=== PATIENT | female | born 1985 | race Caucasian/White ===

== ENCOUNTER 2016-07-23 21:33 | Emergency (ER) | payer OTHER, MEDICAID ==
[~2016-07-23 21:33] MED LIST: CELE20TA PO; CRAN300T PO; FIBEPOW PO; FLUTISP; INVA1INJ IV; MEDR4PAK PO; POLYBTL PO; PRED10TA2 PO; PROAAER INH; SING5CHW PO; SYMB80INH INH; ZYRT10CA PO
--- NOTE | 2016-07-23 23:34 | EDDOCDS ---
Nurse's Notes [facility] Name: Sharri Berger Age: 31 yrs Sex: Female : 1985 Arrival Date: 07/23/2016 Time: 21:33 Bed Triage 1 Private MD: Lesley Vogel PA-C Diagnosis: Erythematous condition, unspecified-SUSPECT CELLULITIS VS. SUPERFICIAL PHLEBITIS;Pain in left leg Presentation: 07/23 21:39 Presenting complaint: Patient states: lump to left hamstring for past 3 days and tender jjr to the touch, also has had lump to left quadriceps for months and is waiting for MRI approval through insurance. Adult Sepsis Screening: The patient does not have new or worsening altered mentation. Patient's respiratory rate is less than 22. Systolic blood pressure is greater than 100. Patient has a qSOFA score of 0- Negative Sepsis Screen. Suicide/Homicide risk assessment- the patient denies having any suicidal and/or homicidal ideations and does not present with any other emotional, behavioral or mental health complaints. Status: Patient is not a utility service worker or dependent. Transition of care: patient was not received from another setting of care. 21:39 Acuity: WAYNE Level 4 jjr 21:39 Method Of Arrival: Walkin/Carried/Asstd jjr Triage Assessment: 21:43 General: Appears in no apparent distress, Behavior is appropriate for age. Pain: jjr Location: left hamstring and left quadriceps. HIV screening NA for this visit Offered previously. 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 none - PMHx: Asthma; - PSHx: repair of fractured finger; - Social history: Smoking status: Patient states was never smoker of tobacco. No barriers to communication noted, The patient speaks fluent Israeli. - Family history: Not pertinent. - : The pt / caregiver states he / she is not on anticoagulants. Home medication list is obtained from the patient. - Exposure Risk Screening:: None identified. Screenin:43 Infection Control. gr2 23:31 Screening information is obtained from the patient. Fall risk: No risks identified. ko2 Assistance ADL's: requires no assistance with activities of daily living. Abuse/DV Screen: The patient / caregiver reports he/she is: not in a situation that causes fear, pain or injury. Nutritional screening: No deficits noted. Advance Directives: Currently, there is no health care proxy. There is no active DNR order. There is no living will. There is no Power of On Car Supervisor. home support is adequate. Assessment: 23:25 General: Appears in no apparent distress, Behavior is appropriate for age, cooperative. ko2 Pain: Location: left leg. Respiratory: Airway is patent. Derm: Skin is pink. Musculoskeletal: Range of motion intact in all extremities. Vital Signs: 21:35 BP 107 / 60; Pulse 76; Resp 18 S; Temp 96.7(O); Pulse Ox 100% on R/A; Weight 76.57 kg gr2 (M); Height 5 ft. 8 in. (172.72 cm) (M); Pain 6/10; 23:26 BP 107 / 65; Pulse 76; Resp 18; Temp 98.4(TE); Pulse Ox 98% on R/A; Pain 4/10; kb5 21:35 Body Mass Index 25.67 (76.57 kg, 172.72 cm) gr2 Vitals: 21:35 Log In Time: July 23, 2016 at 21:35. gr2 ED Course: 21:35 Patient visited by Melonie Perez. gr2 21:35 Lesley Vogel is Private Physician. gr2 21:35 Patient moved to Waiting gr2 21:38 Patient visited by Melonie Perez. gr2 21:38 Patient moved to Pre RCE gr2 21:42 Triage Initiated jjr 21:43 Patient visited by Melonie Perez. gr2 23:09 Patient moved to Triage 1 ko2 23:10 Duane Villalba PA is PHCP. btw 23:10 Robin Boyd DO is Attending Physician. btw 23:10 Patient visited by Duane Villalba PA. btw 23:19 Lesley Vogel is Referral Physician. btw 23:27 Patient visited by Gabriel Golden PCA. kb5 23:32 The patient / caregiver is instructed regarding the plan of care and ED course. ko2 23:32 No IV's were initiated during this patient's visit. No procedures done that require ko2 assistance. Order Results: There are currently no results for this order. Outcome: 23:19 Discharge ordered by Provider. btw 23:32 Discharge Assessment: Patient awake, alert and oriented x 3. No cognitive and/or ko2 functional deficits noted. Patient verbalized understanding of disposition instructions. patient administered narcotics - no. The following High Risk Discharge criteria are identified: None. Discharged to home ambulatory, Admitted. Condition: stable. Discharge instructions given to patient, Instructed on discharge instructions, follow up and referral plans. medication usage, Demonstrated understanding of instructions, medications, Pt was receptive of discharge instructions/ teaching. Prescriptions given X 1. No special radiology studies were completed. Property sent home with patient. 23:33 Patient left the ED. ko2 Signatures: Gabriel Golden, MAK SUPPORT DIRECTOR kb5 Zoe Perez, RN RN Duane Bonilla PA PA btw Melonie Perez gr2 Rebecca CuellarRN RN elysia2 LINH
--- NOTE | 2016-07-23 23:34 | EDDOCDS ---
Physician Documentation [facility] Name: Sharri Berger Age: 31 yrs Sex: Female : 1985 Arrival Date: 07/23/2016 Time: 21:33 Bed Triage 1 Private MD: Lesley Vogel PA-C Disposition: 07/23/16 23:19 Discharged to Home/Self Care. Impression: Erythematous condition, unspecified - SUSPECT CELLULITIS VS. SUPERFICIAL PHLEBITIS, Pain in left leg. - Condition is Stable. - Discharge Instructions: Cellulitis, Aafn-ay-Umyf, Phlebitis, Rtrr-up-[id number]. - Prescriptions for Keflex 500 mg Oral Capsule - take 1 capsule by ORAL route every 8 hours for 10 days; 30 capsule. - Medication Reconciliation, Local Pharmacy Hours form. - Follow up: Lesley Vogel; When: 2 - 3 days; Reason: Further diagnostic work-up, Recheck today's complaints, Continuance of care. - Problem is new. - Symptoms are unchanged. Historical: - Allergies: Latex (Hives); Novocain (Hives); - Home Meds: 1. none - PMHx: Asthma; - PSHx: repair of fractured finger; - Social history: Smoking status: Patient states was never smoker of tobacco. No barriers to communication noted, The patient speaks fluent Fijian. - Family history: Not pertinent. - : The pt / caregiver states he / she is not on anticoagulants. Home medication list is obtained from the patient. - Exposure Risk Screening:: None identified. 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 8 in. (172.72 cm) (M); Pain 6/10; 23:26 BP 107 / 65; Pulse 76; Resp 18; Temp 98.4(TE); Pulse Ox 98% on R/A; Pain 4/10; kb5 21:35 Body Mass Index 25.67 (76.57 kg, 172.72 cm) gr2 Signatures: Zoe Perez, RN RN jjr Duane Villalba PA PA btw Rebecca Cuellar,RN RN ko2 MTDD
--- NOTE | 2016-07-26 00:34 | EDDOCDS ---
Nurse's Notes [facility] Name: Sharri Berger Age: 31 yrs Sex: Female : 1985 Arrival Date: 07/23/2016 Time: 21:33 Bed Triage 1 Private MD: Lesley Vogel PA-C Diagnosis: Erythematous condition, unspecified-SUSPECT CELLULITIS VS. SUPERFICIAL PHLEBITIS;Pain in left leg Presentation: 07/23 21:39 Presenting complaint: Patient states: lump to left hamstring for past 3 days and tender jjr to the touch, also has had lump to left quadriceps for months and is waiting for MRI approval through insurance. Adult Sepsis Screening: The patient does not have new or worsening altered mentation. Patient's respiratory rate is less than 22. Systolic blood pressure is greater than 100. Patient has a qSOFA score of 0- Negative Sepsis Screen. Suicide/Homicide risk assessment- the patient denies having any suicidal and/or homicidal ideations and does not present with any other emotional, behavioral or mental health complaints. Status: Patient is not a guest service team leader or dependent. Transition of care: patient was not received from another setting of care. 21:39 Acuity: WAYNE Level 4 jjr 21:39 Method Of Arrival: Walkin/Carried/Asstd jjr Triage Assessment: 21:43 General: Appears in no apparent distress, Behavior is appropriate for age. Pain: jjr Location: left hamstring and left quadriceps. HIV screening NA for this visit Offered previously. 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 none - PMHx: Asthma; - PSHx: repair of fractured finger; - Social history: Smoking status: Patient states was never smoker of tobacco. No barriers to communication noted, The patient speaks fluent Zambian. - Family history: Not pertinent. - : The pt / caregiver states he / she is not on anticoagulants. Home medication list is obtained from the patient. - Exposure Risk Screening:: None identified. Screenin:43 Infection Control. gr2 23:31 Screening information is obtained from the patient. Fall risk: No risks identified. ko2 Assistance ADL's: requires no assistance with activities of daily living. Abuse/DV Screen: The patient / caregiver reports he/she is: not in a situation that causes fear, pain or injury. Nutritional screening: No deficits noted. Advance Directives: Currently, there is no health care proxy. There is no active DNR order. There is no living will. There is no Power of Fruit Harvest Worker. home support is adequate. Assessment: 23:25 General: Appears in no apparent distress, Behavior is appropriate for age, cooperative. ko2 Pain: Location: left leg. Respiratory: Airway is patent. Derm: Skin is pink. Musculoskeletal: Range of motion intact in all extremities. Vital Signs: 21:35 BP 107 / 60; Pulse 76; Resp 18 S; Temp 96.7(O); Pulse Ox 100% on R/A; Weight 76.57 kg gr2 (M); Height 5 ft. 8 in. (172.72 cm) (M); Pain 6/10; 23:26 BP 107 / 65; Pulse 76; Resp 18; Temp 98.4(TE); Pulse Ox 98% on R/A; Pain 4/10; kb5 21:35 Body Mass Index 25.67 (76.57 kg, 172.72 cm) gr2 Vitals: 21:35 Log In Time: July 23, 2016 at 21:35. gr2 ED Course: 21:35 Patient visited by Melonie Perez. gr2 21:35 Lesley Vogel is Private Physician. gr2 21:35 Patient moved to Waiting gr2 21:38 Patient visited by Melonie Perez. gr2 21:38 Patient moved to Pre RCE gr2 21:42 Triage Initiated jjr 21:43 Patient visited by Melonie Perez. gr2 23:09 Patient moved to Triage 1 ko2 23:10 Duane Villalba PA is PHCP. btw 23:10 Robin Boyd DO is Attending Physician. btw 23:10 Patient visited by Duane Villalba PA. btw 23:19 Lesley Vogel is Referral Physician. btw 23:27 Patient visited by Gabriel Golden PCA. kb5 23:32 The patient / caregiver is instructed regarding the plan of care and ED course. ko2 23:32 No IV's were initiated during this patient's visit. No procedures done that require ko2 assistance. 07/24 01:01 [facility] Payment Agreement was scanned into [employer] and attached to record. pm4 14:07 T-Sheet-- Draft Copy was scanned into [employer] and attached to record. gb Order Results: There are currently no results for this order. Outcome: 07/23 23:19 Discharge ordered by Provider. btw 23:32 Discharge Assessment: Patient awake, alert and oriented x 3. No cognitive and/or ko2 functional deficits noted. Patient verbalized understanding of disposition instructions. patient administered narcotics - no. The following High Risk Discharge criteria are identified: None. Discharged to home ambulatory, Admitted. Condition: stable. Discharge instructions given to patient, Instructed on discharge instructions, follow up and referral plans. medication usage, Demonstrated understanding of instructions, medications, Pt was receptive of discharge instructions/ teaching. Prescriptions given X 1. No special radiology studies were completed. Property sent home with patient. 23:33 Patient left the ED. ko2 Signatures: Renea Nye, Reg Reg gb Gabriel Golden, BINDERY MACHINE OPERATOR BINDERY MACHINE OPERATOR kb5 Zoe Perez, RN RN Duane Bonilla PA PA btw Melonie Perez gr2 Rebecca CuellarRN RN ko2 Cabrera Rosas, Reg Reg pm4 Chart Complete MTDD
--- NOTE | 2016-07-26 00:34 | EDDOCDS ---
Physician Documentation [facility] Name: Sharri Berger Age: 31 yrs Sex: Female : 1985 Arrival Date: 07/23/2016 Time: 21:33 Bed Triage 1 Private MD: Lesley Vogel PA-C Disposition: 07/23/16 23:19 Discharged to Home/Self Care. Impression: Erythematous condition, unspecified - SUSPECT CELLULITIS VS. SUPERFICIAL PHLEBITIS, Pain in left leg. - Condition is Stable. - Discharge Instructions: Cellulitis, Xqnd-ds-Gtew, Phlebitis, Xwsr-wb-Amzn. - Prescriptions for Keflex 500 mg Oral Capsule - take 1 capsule by ORAL route every 8 hours for 10 days; 30 capsule. - Medication Reconciliation, Local Pharmacy Hours form. - Follow up: Lesley Vogel; When: 2 - 3 days; Reason: Further diagnostic work-up, Recheck today's complaints, Continuance of care. - Problem is new. - Symptoms are unchanged. Historical: - Allergies: Latex (Hives); Novocain (Hives); - Home Meds: 1. none - PMHx: Asthma; - PSHx: repair of fractured finger; - Social history: Smoking status: Patient states was never smoker of tobacco. No barriers to communication noted, The patient speaks fluent Estonian. - Family history: Not pertinent. - : The pt / caregiver states he / she is not on anticoagulants. Home medication list is obtained from the patient. - Exposure Risk Screening:: None identified. 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 8 in. (172.72 cm) (M); Pain 6/10; 23:26 BP 107 / 65; Pulse 76; Resp 18; Temp 98.4(TE); Pulse Ox 98% on R/A; Pain 4/10; kb5 21:35 Body Mass Index 25.67 (76.57 kg, 172.72 cm) gr2 MDM: 07/24 01:01 COUNTS INCLUDE 234 BEDS AT THE [facility] Payment Agreement was scanned into [employer] and attached to record. pm4 14:07 T-Sheet-- Draft Copy was scanned into [employer] and attached to record. gb Signatures: Renea yNe, Reg Reg gb Zoe Perez, Duane Kaye RN, PA PA btw Ogden, Kari, RN RN ko2 Cabrera Rosas, Reg Reg pm4 The chart was reviewed and I authenticate all verbal orders and agree with the evaluation and treatment provided.Attachments: 01:01 COUNTS INCLUDE 234 BEDS AT THE [facility] Payment Agreement pm4 14:07 T-Sheet-- Draft Copy gb Chart Complete MTDD
--- NOTE | 2016-07-26 00:34 | EDDOCDS ---
Physician Documentation [facility] Name: Sharri Berger Age: 31 yrs Sex: Female : 1985 Arrival Date: 07/23/2016 Time: 21:33 Bed Triage 1 Private MD: Lesley Vogel PA-C Disposition: 07/23/16 23:19 Discharged to Home/Self Care. Impression: Erythematous condition, unspecified - SUSPECT CELLULITIS VS. SUPERFICIAL PHLEBITIS, Pain in left leg. - Condition is Stable. - Discharge Instructions: Cellulitis, Ivkp-yo-Mnfm, Phlebitis, Vcts-ac-Gbon. - Prescriptions for Keflex 500 mg Oral Capsule - take 1 capsule by ORAL route every 8 hours for 10 days; 30 capsule. - Medication Reconciliation, Local Pharmacy Hours form. - Follow up: Lesley Vogel; When: 2 - 3 days; Reason: Further diagnostic work-up, Recheck today's complaints, Continuance of care. - Problem is new. - Symptoms are unchanged. Historical: - Allergies: Latex (Hives); Novocain (Hives); - Home Meds: 1. none - PMHx: Asthma; - PSHx: repair of fractured finger; - Social history: Smoking status: Patient states was never smoker of tobacco. No barriers to communication noted, The patient speaks fluent Malawian. - Family history: Not pertinent. - : The pt / caregiver states he / she is not on anticoagulants. Home medication list is obtained from the patient. - Exposure Risk Screening:: None identified. 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 8 in. (172.72 cm) (M); Pain 6/10; 23:26 BP 107 / 65; Pulse 76; Resp 18; Temp 98.4(TE); Pulse Ox 98% on R/A; Pain 4/10; kb5 21:35 Body Mass Index 25.67 (76.57 kg, 172.72 cm) gr2 MDM: 07/24 01:01 [facility] Payment Agreement was scanned into [employer] and attached to record. pm4 14:07 T-Sheet-- Draft Copy was scanned into [employer] and attached to record. gb Signatures: Renea Nye, Reg Reg gb Zoe Perez, Duane Kaye RN, PA PA btw Ogden, Kari, RN RN ko2 Cabrera Rosas, Reg Reg pm4 The chart was reviewed and I authenticate all verbal orders and agree with the evaluation and treatment provided.Attachments: 01:01 [facility] Payment Agreement pm4 14:07 T-Sheet-- Draft Copy gb Chart Complete MTDD
== END 2016-07-23 23:33 | disposition home or self-care (01) ==
LOC: M ED 21:33
DX: L53.9 Erythematous condition, unspecified (principal); J45.909 Unspecified asthma, uncomplicated; Z91.040 Latex allergy status; Z88.4 Allergy status to anesthetic agent

== ENCOUNTER 2016-09-11 23:19 | Emergency (ER) | payer MEDICAID, OTHER ==
[~2016-09-11] VITALS: Ht 165.1 cm; Wt 75.7 kg
[2016-09-12] MEDS ORDERED: AUGM875T27 PO (00:57)
[2016-09-12] MEDS ORDERED: DERMABOND TOPICAL SKIN ADHESIVE TOP ONE (01:00)
[2016-09-12] MEDS ORDERED: ADACEL/BOOSTRIX VACCINE (DIPHTH/PERTUSS/ACELL/TETANUS)0.5ML SYR (90715) IM ONE (01:00)
[2016-09-12 01:21] VITALS: BP 105/63
== END 2016-09-12 01:27 | disposition home or self-care (01) ==
LOC: M ED 09-12 00:48
DX: S61.211A Laceration without foreign body of left index finger without damage to nail, initial encounter (principal); S61.210A Laceration without foreign body of right index finger without damage to nail, initial encounter; X58.XXXA Exposure to other specified factors, initial encounter; Y92.019 Unspecified place in single-family (private) house as the place of occurrence of the external cause; Y93.89 Activity, other specified; Y99.8 Other external cause status; F17.200 Nicotine dependence, unspecified, uncomplicated

== ENCOUNTER 2016-10-19 14:24 | Emergency (ER) | payer OTHER, MEDICAID ==
[~2016-10-19] VITALS: Ht 165.1 cm; Wt 76.2 kg
[~2016-10-19 14:24] MED LIST changes: +AUGM875T27 PO
[2016-10-19] MEDS ORDERED: SERT-155 (14:43)
[2016-10-19] MEDS ORDERED: TRIAMCINOLONE (14:43)
[2016-10-19 15:18] LABS: BASO # 0.1 K/mm3 (0.0-0.2); BASO % 0.7 % (0.0-1.0); EOS # 0.1 K/mm3 (0.0-0.50); EOS % 1.5 % (0.0-3.0); LARGE UNSTAINED CELL # 0.1 K/mm3 (0.0-0.4); LARGE UNSTAINED CELL % 1.2 % (0.0-4.0); LYMPH # 2.3 K/mm3 (1.5-4.5); LYMPH % 26.8 % (24.0-44.0); MEAN CORPUSCULAR HEMOGLOBIN 29.1 pg (27.0-33.0); MEAN CORPUSCULAR HGB CONC 34.8 g/dl (32.0-36.5); MEAN CORPUSCULAR VOLUME 83.5 fl (80.0-96.0); MONO # 0.4 K/mm3 (0.0-0.8); MONO % 4.4 % (0.0-5.0); NEUTROPHILS # 5.4 K/mm3 (1.8-7.7); NEUTROPHILS % 65.3 % (36.0-66.0); PLATELET COUNT, AUTOMATED 249 k/mm3 (150-450); RED CELL DISTRIBUTION WIDTH 13.1 % (11.5-14.5); WHITE BLOOD COUNT 8.3 K/mm3 (4.0-10.0)
[2016-10-19 15:46] LABS: ALBUMIN 3.7 GM/DL (3.2-5.2); ALKALINE PHOSPHATASE 74 U/L (45-117); ALT/SGPT 15 U/L (12-78); AMYLASE 38 U/L (25-115); ANION GAP 8 MEQ/L (8-16); AST/SGOT 10 U/L (15-37); BILIRUBIN,DIRECT < 0.1 MG/DL (0.0-0.2); BILIRUBIN,TOTAL 0.4 MG/DL (0.2-1.0); BLOOD UREA NITROGEN 18 MG/DL (7-18); CARBON DIOXIDE LEVEL 27 MEQ/L (21-32); CHLORIDE LEVEL 105 MEQ/L (98-107); CREATININE FOR GFR 0.76 MG/DL (0.55-1.02); GLOMERULAR FILTRATION RATE > 60.0 (>60); GLUCOSE, FASTING 88 MG/DL (70-105); POTASSIUM SERUM 3.7 MEQ/L (3.5-5.1); SODIUM LEVEL 140 MEQ/L (136-145); TOTAL PROTEIN 7.4 GM/DL (6.4-8.2)
[2016-10-19] MEDS ORDERED: ZANT300T PO (16:06)
[2016-10-19] MEDS ORDERED: NAPR500T PO (16:06)
[2016-10-19 16:14] VITALS: BP 121/65
== END 2016-10-19 16:15 | disposition home or self-care (01) ==
LOC: M ED 16:03
DX: R10.13 Epigastric pain (principal); J45.909 Unspecified asthma, uncomplicated; Z79.899 Other long term (current) drug therapy; Z91.040 Latex allergy status; Z88.4 Allergy status to anesthetic agent

== ENCOUNTER → 2016-11-13 | Outpatient (CLI) | payer MEDICAID, OTHER ==
[~2016-11-13] MED LIST changes: +NAPR500T PO; +SERT-155; +TRIAMCINOLONE; +ZANT300T PO
--- NOTE | 2016-11-13 09:36 | REP ---
RIGHT QUADRANT SONOGRAPHY: HISTORY: Right upper quadrant abdominal pain. Comparison study November 08, 2013. FINDINGS: Scanning through the right upper quadrant of the abdomen demonstrates dilated common bile duct measuring 8.8 mm in greatest dimension. There is mild intrahepatic biliary ductal dilation noted as well. The common bile duct tapers to a 4 mm caliber in the pancreatic head. Limited views of the pancreas show no abnormality. No focal liver lesion is seen. A normal sized thin-walled gallbladder is observed without evidence of stone or polyp. There is no evidence of ascites or right renal abnormality. The right kidney measures 9.9 x 5.6 x 4.0 cm. IMPRESSION: Dilated common bile duct and mild intrahepatic biliary ductal dilation. No evidence of gallstones. Pancreas less than optimally seen. Consider MRCP. Signed by Brooks Price MD 11/13/2016 02:50 P
== END ==
LOC: M RAD 08:03
PROVIDERS: ATTEND Physician Assistant
DX: R10.9 Unspecified abdominal pain (principal)

== ENCOUNTER → 2016-11-14 | Outpatient (CLI) | payer OTHER ==
[2016-11-14 14:06] LABS: BASO % 0.5 % (0.0-1.0); EOS % 0.6 % (0.0-3.0); LARGE UNSTAINED CELL # 0.1 K/mm3 (0.0-0.4); LARGE UNSTAINED CELL % 1.3 % (0.0-4.0); LYMPH # 2.1 K/mm3 (1.5-4.5); LYMPH % 34.2 % (24.0-44.0); MEAN CORPUSCULAR HEMOGLOBIN 28.5 pg (27.0-33.0); MEAN CORPUSCULAR HGB CONC 33.8 g/dl (32.0-36.5); MEAN CORPUSCULAR VOLUME 84.3 fl (80.0-96.0); MONO # 0.4 K/mm3 (0.0-0.8); NEUTROPHILS # 3.5 K/mm3 (1.8-7.7); NEUTROPHILS % 57.3 % (36.0-66.0); PLATELET COUNT, AUTOMATED 236 k/mm3 (150-450); RED CELL DISTRIBUTION WIDTH 12.9 % (11.5-14.5)
[2016-11-14 14:40] LABS: ALBUMIN 3.7 GM/DL (3.2-5.2); ALBUMIN/GLOBULIN RATIO 1.12 (1.00-1.93); ALKALINE PHOSPHATASE 82 U/L (45-117); ALT/SGPT 18 U/L (12-78); ANION GAP 5 MEQ/L (8-16); AST/SGOT 7 U/L (15-37); BILIRUBIN,TOTAL 0.4 MG/DL (0.2-1.0); BLOOD UREA NITROGEN 9 MG/DL (7-18); CALCIUM LEVEL 9.1 MG/DL (8.5-10.1); CARBON DIOXIDE LEVEL 29 MEQ/L (21-32); CHLORIDE LEVEL 105 MEQ/L (98-107); CREATININE FOR GFR 0.67 MG/DL (0.55-1.02); GLOMERULAR FILTRATION RATE > 60.0 (>60); GLUCOSE, FASTING 78 MG/DL (70-105); POTASSIUM SERUM 4.1 MEQ/L (3.5-5.1); SODIUM LEVEL 139 MEQ/L (136-145)
== END ==
LOC: M LAB 13:24
PROVIDERS: ATTEND Physician Assistant
DX: R10.11 Right upper quadrant pain (principal)

== ENCOUNTER 2016-11-22 19:34 | Emergency (ER) | payer MEDICAID, OTHER ==
[~2016-11-22] VITALS: Ht 165.1 cm; Wt 75.5 kg
[2016-11-22] MEDS ORDERED: MORPHINE 4 MG/ML 1ML SYRINGE IV ONE (21:00)
[2016-11-22] MEDS ORDERED: ONDANSETRON 4MG/2ML VIAL (J2405) IV ONE (21:00)
[2016-11-22] MEDS ORDERED: NS 1,000 ML IV SCH (21:02)
[2016-11-22 21:40] LABS: BASO % 0.6 % (0.0-1.0); EOS % 0.6 % (0.0-3.0); LARGE UNSTAINED CELL # 0.1 K/mm3 (0.0-0.4); LARGE UNSTAINED CELL % 1.7 % (0.0-4.0); LYMPH # 2.7 K/mm3 (1.5-4.5); MEAN CORPUSCULAR HEMOGLOBIN 29.1 pg (27.0-33.0); MEAN CORPUSCULAR HGB CONC 34.5 g/dl (32.0-36.5); MEAN CORPUSCULAR VOLUME 84.2 fl (80.0-96.0); MONO # 0.5 K/mm3 (0.0-0.8); MONO % 5.5 % (0.0-5.0); NEUTROPHILS # 4.8 K/mm3 (1.8-7.7); NEUTROPHILS % 58.6 % (36.0-66.0); PLATELET COUNT, AUTOMATED 218 k/mm3 (150-450); RED CELL DISTRIBUTION WIDTH 12.8 % (11.5-14.5); WHITE BLOOD COUNT 8.2 K/mm3 (4.0-10.0)
[2016-11-22 21:46] LABS: CONTROL LINE HCG INT CTR LINE PRESENT
[2016-11-22 21:47] LABS: ALBUMIN 3.7 GM/DL (3.2-5.2); ALBUMIN/GLOBULIN RATIO 1.09 (1.00-1.93); ALKALINE PHOSPHATASE 90 U/L (45-117); ALT/SGPT 13 U/L (12-78); ANION GAP 5 MEQ/L (8-16); AST/SGOT 10 U/L (15-37); BILIRUBIN,DIRECT < 0.1 MG/DL (0.0-0.2); BILIRUBIN,TOTAL 0.3 MG/DL (0.2-1.0); BLOOD UREA NITROGEN 15 MG/DL (7-18); CALCIUM LEVEL 8.7 MG/DL (8.5-10.1); CARBON DIOXIDE LEVEL 28 MEQ/L (21-32); CHLORIDE LEVEL 105 MEQ/L (98-107); CREATININE FOR GFR 0.83 MG/DL (0.55-1.02); GLOMERULAR FILTRATION RATE > 60.0 (>60); GLUCOSE, FASTING 95 MG/DL (70-105); POTASSIUM SERUM 3.5 MEQ/L (3.5-5.1); SODIUM LEVEL 138 MEQ/L (136-145); TOTAL PROTEIN 7.1 GM/DL (6.4-8.2)
--- NOTE | 2016-11-22 22:00 | REPUSA ---
Clinical history: Right upper quadrant pain. Findings: The pancreas is limited in visualization secondary to overlying bowel gas, but appears emiliano sly unremarkable. The liver demonstrates uniform echotexture and echogenicity, with no mass lesions. The gallbladder is unremarkable. The common bile duct measures 5 mm and is within normal limits. The right kidney measures 9.9 cm in length, and is unremarkable. There is no ascites. Impression: Unremarkable ultrasound examination of the right upper quadrant.
[2016-11-22] MEDS ORDERED: GASTROGRAFIN SOLUTION 30ML (Q9963) PO ONE ×2 (22:45)
[2016-11-23] MEDS ORDERED: ISOVUE-370 76% 100ML VIAL (Q9967) As Ordered ONE (00:08)
[2016-11-23] MEDS ORDERED: MORPHINE 4 MG/ML 1ML SYRINGE IV ONE (00:15)
--- NOTE | 2016-11-23 00:47 | REP ---
Clinical: Right-sided abdominal pain. Technique: Axial contrast enhanced images from the lung bases to the pubic symphysis using oral and 100 ml Isovue 370 intravenous contrast material with coronal and sagittal re-formations. Comparison: 07/15/2013. Findings: Lung bases are clear. Large gastric hiatal hernia noted. Liver, spleen, pancreas, gallbladder, bilateral adrenal glands and kidneys are normal. The enteric system is without obstruction or acute inflammatory process and a normal terminal ileum and appendix are identified in the right lower quadrant. Pelvis demonstrates normal bladder and age-appropriate uterus/right adnexa. Rim enhancing 2.3 cm left ovarian cyst and small amount of free fluid may represent ruptured ovarian cyst. No significant ascites. No free air. No intraperitoneal or retroperitoneal adenopathy. Vasculature is normal. Surrounding musculoskeletal structures are intact. Mild to moderate degenerative changes at the L5-S1 level cannot be excluded. Impression: 1. Large gastric hiatal hernia. 2. 2.3 cm rim enhancing left ovarian cyst and small amount of free fluid in the pelvis may represent ruptured cyst and possibly related to patient's symptoms. 3. Moderate degenerative disc disease at the L5-S1 level. Signed by Farrukh Calle MD 11/23/2016 12:39 A
[2016-11-23 01:09] VITALS: BP 115/50
== END 2016-11-23 01:11 | disposition home or self-care (01) ==
LOC: M ED 21:08
DX: R10.9 Unspecified abdominal pain (principal); N83.299 Other ovarian cyst, unspecified side; F32.9 Major depressive disorder, single episode, unspecified; J45.909 Unspecified asthma, uncomplicated; K44.9 Diaphragmatic hernia without obstruction or gangrene; M51.37 Other intervertebral disc degeneration, lumbosacral region; Z79.899 Other long term (current) drug therapy; Z91.040 Latex allergy status; Z88.4 Allergy status to anesthetic agent

== ENCOUNTER 2016-12-20 10:20 | Emergency (ER) | payer MEDICAID, OTHER ==
[~2016-12-20] VITALS: Ht 165.1 cm; Wt 75.4 kg
[~2016-12-20 10:20] MED LIST changes: -AUGM875T27 PO; +AUGM875T28 PO; -SERT-155; +SERT-155 PO
[2016-12-20] MEDS ORDERED: NASA1SPR (10:31)
[2016-12-20] MEDS ORDERED: ALBU17IN (10:31)
[2016-12-20] MEDS ORDERED: NS 1,000 ML IV ONE (12:15)
[2016-12-20] MEDS ORDERED: ONDANSETRON 4MG/2ML VIAL (J2405) IV ONE (12:15)
[2016-12-20] MEDS ORDERED: KETOROLAC 30 MG/ML VIAL (J1885) IV ONE (12:15)
[2016-12-20 12:43] LABS: BASO % 0.7 % (0.0-1.0); EOS % 0.7 % (0.0-3.0); LARGE UNSTAINED CELL # 0.1 K/mm3 (0.0-0.4); LARGE UNSTAINED CELL % 1.7 % (0.0-4.0); LYMPH # 1.7 K/mm3 (1.5-4.5); LYMPH % 22.4 % (24.0-44.0); MEAN CORPUSCULAR HEMOGLOBIN 28.9 pg (27.0-33.0); MEAN CORPUSCULAR HGB CONC 34.4 g/dl (32.0-36.5); MONO # 0.4 K/mm3 (0.0-0.8); NEUTROPHILS # 4.9 K/mm3 (1.8-7.7); NEUTROPHILS % 69.5 % (36.0-66.0); PLATELET COUNT, AUTOMATED 220 k/mm3 (150-450); RED CELL DISTRIBUTION WIDTH 12.9 % (11.5-14.5); WHITE BLOOD COUNT 7.1 K/mm3 (4.0-10.0)
[2016-12-20 13:05] LABS: ALBUMIN 3.5 GM/DL (3.2-5.2); ALBUMIN/GLOBULIN RATIO 0.92 (1.00-1.93); ALKALINE PHOSPHATASE 81 U/L (45-117); ALT/SGPT 15 U/L (12-78); ANION GAP 5 MEQ/L (8-16); AST/SGOT 7 U/L (15-37); BILIRUBIN,DIRECT < 0.1 MG/DL (0.0-0.2); BILIRUBIN,TOTAL 0.4 MG/DL (0.2-1.0); BLOOD UREA NITROGEN 10 MG/DL (7-18); CALCIUM LEVEL 8.8 MG/DL (8.5-10.1); CARBON DIOXIDE LEVEL 26 MEQ/L (21-32); CHLORIDE LEVEL 108 MEQ/L (98-107); CREATININE FOR GFR 0.67 MG/DL (0.55-1.02); GLOMERULAR FILTRATION RATE > 60.0 (>60); GLUCOSE, FASTING 85 MG/DL (70-105); SODIUM LEVEL 139 MEQ/L (136-145); TOTAL PROTEIN 7.3 GM/DL (6.4-8.2)
--- NOTE | 2016-12-20 13:29 | REP ---
Right upper quadrant sonography: History: Right upper quadrant pain. Comparison CT study November 23, 2016. Findings: Scanning through the right upper quadrant of the abdomen demonstrates normal sized thin-walled gallbladder without evidence of stone or polyp. Common bile duct measures 0.8 cm in diameter. This previously measured 8.8 mm on November 13, 2016 and appears to be unchanged from its dimension compared to November 23, 2016 CT study. No intrahepatic biliary ductal dilation is observed. No pancreatic abnormality is seen. Pancreas is partially obscured by abdominal gas however. There is no evidence of ascites or right renal abnormality. No focal hepatic lesion is seen. There is prominent lobation in the right kidney. The right kidney measures 9.6 x 4.7 x 3.9 cm. Impression: Borderline caliber common bile duct, 8 mm, unchanged from comparison study November 2016. Otherwise negative right upper quadrant sonography. Signed by Brooks Price MD 12/20/2016 02:02 P
[2016-12-20] MEDS ORDERED: PERC5TAB12 PO (14:02)
[2016-12-20] MEDS ORDERED: ZOFR4TAB3 PO (14:02)
[2016-12-20] MEDS ORDERED: PROT1TAB2 PO (14:02)
[2016-12-20] MEDS ORDERED: KETO10TAB PO (14:02)
[2016-12-20 14:23] VITALS: BP 126/58
[2016-12-25] MEDS ORDERED: NASA1SPR (08:54)
[2016-12-25] MEDS ORDERED: ALBU17IN INH (08:54)
[2017-02-05] MEDS ORDERED: FLAG500T PO (09:34)
[2017-02-05] MEDS ORDERED: PANT40TA2 PO (09:34)
[2017-02-05] MEDS ORDERED: RANI150T PO (09:34)
== END 2016-12-20 14:25 | disposition home or self-care (01) ==
LOC: M ED 10:20
DX: R10.11 Right upper quadrant pain (principal); R11.0 Nausea; F17.200 Nicotine dependence, unspecified, uncomplicated; J45.909 Unspecified asthma, uncomplicated; Z87.440 Personal history of urinary (tract) infections; F41.9 Anxiety disorder, unspecified; F32.9 Major depressive disorder, single episode, unspecified; Z79.899 Other long term (current) drug therapy; Z88.0 Allergy status to penicillin; Z88.4 Allergy status to anesthetic agent; Z91.040 Latex allergy status

== ENCOUNTER 2016-12-30 08:57 | Emergency (ER) | payer OTHER ==
[~2016-12-30] VITALS: Ht 165.1 cm; Wt 71.1 kg
[~2016-12-30 08:57] MED LIST changes: +ALBU17IN; +ALBU17IN INH; +KETO10TAB PO; +NASA1SPR; +PERC5TAB12 PO; +PROT1TAB2 PO; +ZOFR4TAB3 PO
[2016-12-30] MEDS ORDERED: diphenhydrAMINE 25 MG CAP PO ONE (09:45)
[2016-12-30] MEDS ORDERED: KETOROLAC 60 MG/2 ML VIAL (J1885) IM ONE (09:45)
[2016-12-30] MEDS ORDERED: ONDANSETRON 4 MG ORAL DISINTEGRATING TAB (S0181) PO ONE (09:45)
[2016-12-30 10:39] VITALS: BP 110/61
[2017-02-05] MEDS ORDERED: PANT40TA2 PO (09:34)
[2017-02-05] MEDS ORDERED: RANI150T PO (09:34)
[2017-02-05] MEDS ORDERED: FLAG500T PO (09:34)
== END 2016-12-30 10:40 | disposition home or self-care (01) ==
LOC: M ED 09:29
DX: G43.909 Migraine, unspecified, not intractable, without status migrainosus (principal); R11.2 Nausea with vomiting, unspecified; R19.7 Diarrhea, unspecified; J45.909 Unspecified asthma, uncomplicated; F41.9 Anxiety disorder, unspecified; F32.9 Major depressive disorder, single episode, unspecified
CPT/HCPCS: 96374; 99282; J1885

== ENCOUNTER → 2017-01-01 | Outpatient (CLI) | payer OTHER ==
[~2017-01-01] VITALS: Ht 165.1 cm; Wt 75.7 kg
[~2017-01-01] MED LIST changes: +FLAG500T PO; +LIDOCAINE 2% INJ 100 MG/5 ML SDV (FOR ANES.) As Ordered ONE; +NS 1,000 ML IV SCH; +PANT40TA2 PO; +PERC5TAB12; +PROPOFOL 200 MG/20 ML VIAL As Ordered ONE; +RANI150T PO; +SENE8.6T
--- NOTE | 2017-01-01 14:27 | ROOR ---
Patient Name: Sharri Berger Procedure Date: 01/01/2017 2:09 PM Date of : 1985 Age: 31 Room: [facility] Gender: Female Note Status: Finalized Procedure: Upper GI endoscopy Indications: Epigastric abdominal pain, Abdominal pain in the right upper quadrant Providers: James GUSMAN MD Referring MD: Octavio Vogel MD Requesting Provider: Medicines: Monitored Anesthesia Care Complications: No immediate complications. Procedure: Pre-Anesthesia Assessment: - The heart rate, respiratory rate, oxygen saturations, blood pressure, adequacy of pulmonary ventilation, and response to care were monitored throughout the procedure. The Endoscope was introduced through the mouth, and advanced to the second part of duodenum. The upper GI endoscopy was accomplished without difficulty. The patient tolerated the procedure well. Findings: A medium-sized paraesophageal hernia was found. The exam of the stomach was otherwise normal. The examined esophagus was normal. A medium diverticulum was found in the area of the papilla. Impression: - Medium-sized paraesophageal hernia. - Normal esophagus. - Duodenal diverticulum in the area of the papilla- (likley responsible for abnormal bile duct appearance on Ultrasound)--This is insignificant. - The duodenum is otherwise normal. - No specimens collected. Recommendation: - Refer to a surgeon at appointment to be scheduled. I will make referral to a surgeon to have the paraesophageal gastric hernia repaired.--this may cause intermittent abdominal pain and vomiting. This should not be left alone. Repair is highly recommended. - Please complete your gallbladder scan. James Gusman MD James GUSMAN MD 01/01/2017 2:27:22 PM This report has been signed electronically. Number of Addenda: 0 Note Initiated On: 01/01/2017 2:09 PM Estimated Blood Loss: Estimated blood loss: none.
--- NOTE | 2017-01-01 14:37 | ROOR ---
Patient Name: Sharri Berger Procedure Date: 01/01/2017 2:10 PM Date of : 1985 Age: 31 Room: [facility] Gender: Female Note Status: Finalized Procedure: Colonoscopy Indications: Change in bowel habits Providers: James GUSMAN MD Referring MD: Octavio Vogel MD Requesting Provider: Medicines: Monitored Anesthesia Care Complications: No immediate complications. Procedure: Pre-Anesthesia Assessment: - The heart rate, respiratory rate, oxygen saturations, blood pressure, adequacy of pulmonary ventilation, and response to care were monitored throughout the procedure. The Colonoscope was introduced through the anus and advanced to 5 cm into the ileum. The colonoscopy was performed without difficulty. The patient tolerated the procedure well. The quality of the bowel preparation was good. Findings: The perianal and digital rectal examinations were normal. The terminal ileum appeared normal. A few medium-mouthed diverticula were found in the sigmoid colon and descending colon. Small Internal Hemorrhoids. The entire examined colon appeared normal on direct and retroflexion views. Impression: - The perianal exam and examined portion of the ileum are normal. - Mild diverticulosis in the sigmoid colon and in the descending colon. - Small Internal Hemorrhoids. - The entire examined colon is normal on direct and retroflexion views. - No specimens collected. Recommendation: - Use fiber, for example Citrucel, Fibercon, Konsyl or Metamucil. - Continue present medications. James Gusman MD James GUSMAN MD 01/01/2017 2:36:56 PM This report has been signed electronically. Number of Addenda: 0 Note Initiated On: 01/01/2017 2:10 PM Estimated Blood Loss: Estimated blood loss: none.
[2017-01-01 15:06] VITALS: BP 100/49
== END | disposition home or self-care (01) ==
LOC: M OPP 13:07
PROVIDERS: ATTEND Internal Medicine Gastroenterology
DX: R19.4 Change in bowel habit (principal); K57.30 Diverticulosis of large intestine without perforation or abscess without bleeding; K64.8 Other hemorrhoids; R10.13 Epigastric pain; R10.11 Right upper quadrant pain; K57.10 Diverticulosis of small intestine without perforation or abscess without bleeding; K44.9 Diaphragmatic hernia without obstruction or gangrene; K82.9 Disease of gallbladder, unspecified; F32.9 Major depressive disorder, single episode, unspecified; G43.909 Migraine, unspecified, not intractable, without status migrainosus; J45.909 Unspecified asthma, uncomplicated; Z88.0 Allergy status to penicillin; Z88.8 Allergy status to other drugs, medicaments and biological substances; Z91.040 Latex allergy status; Z79.899 Other long term (current) drug therapy; Z80.1 Family history of malignant neoplasm of trachea, bronchus and lung; Z80.51 Family history of malignant neoplasm of kidney

== ENCOUNTER → 2017-01-09 | Outpatient (CLI) | payer OTHER ==
[~2017-01-09] MED LIST changes: -LIDOCAINE 2% INJ 100 MG/5 ML SDV (FOR ANES.) As Ordered ONE; -NS 1,000 ML IV SCH; -PROPOFOL 200 MG/20 ML VIAL As Ordered ONE
--- NOTE | 2017-01-09 13:56 | REP ---
Biliary scan with gallbladder ejection fraction: 01/09/2017 Clinical history: Right upper quadrant abdominal pain. Comparison gallbladder ultrasound 12/20/2016. Technique: Patient received 6.6 mCi technetium 99m mebrofenin via an IV with sequential 5-minute images over the right upper quadrant for 1 hour. Thereafter 8 ounces of Ensure Enlive was ingested and re-imaging beginning 65 minutes post tracer injection with sequential 2-minute images for 1 hour. Region of interest drawn over the gallbladder which was evaluated for ejection fraction with a semi-automated method. Tracer distribution of the liver was homogenous and without focal lesion. Activity is first seen in the duodenum at 20 minutes and in the gallbladder fossa at 25 minutes with progressive washout of activity from the liver and progressive increasing activity in the gallbladder. Activity progresses into the jejunum by the 45-minute film with peristalsis demonstrated thereafter. Gallbladder ejection fraction calculated at 96% for 60 minutes. The normal value is greater than 35% with this technique. Impression: 1. Homogeneous tracer distribution throughout the liver with prompt appearance of activity in the duodenum and gallbladder and normal biliary to bowel transit of 45 minutes. 2. Gallbladder ejection fraction was 96% at 1 hour. Signed by Eliazar Bates MD 01/09/2017 07:10 P
== END ==
LOC: M RAD 08:36
PROVIDERS: ATTEND Physician Assistant Medical
DX: R10.11 Right upper quadrant pain (principal)

== ENCOUNTER → 2017-01-17 | Outpatient (CLI) | payer OTHER ==
[~2017-01-17] MED LIST changes: +E-Z-GAS II EFFERVESCENT PACKET (SODIUM BICARB./CITRIC ACID/SIMETHICONE) As Ordered ONE; +E-Z-HD 98% w/w 340GM SUSP BTL As Ordered ONE; +E-Z-PAQUE 96% w/w SUSP 176GM BTL As Ordered ONE
--- NOTE | 2017-01-17 19:04 | REP ---
UPPER GI, AIR CONTRAST: The procedure was performed under the direct supervision of Dr. Linton. The images were reviewed with Dr. Linton. The can feeder film shows no organomegaly or pathological masses. The intestinal gas pattern is nonspecific. Liquid barium and gas-producing granules were given in the erect position as well as liquid barium in the prone oblique position in order to perform a double contrast upper GI examination. The oral and pharyngeal stages of deglutition are unremarkable. Esophageal transport is prompt and efficient and there is no esophagitis, stricture or mucosal ring. There is a moderate sized paraesophageal hiatal hernia identified. Gastroesophageal reflux is not demonstrated on this examination. The stomach reynoso are normally outlined. The rugal folds are smooth and regular. There is no gastritis, neoplasm or ulcer disease. The duodenal reynoso are normally outlined. The mucosal folds are smooth and regular. There is no duodenitis, pancreatitis, peptic ulcer disease or neoplasm. The visualized portion of the proximal small bowel appears normal in course and caliber. There is a small diverticulum in the descending portion of the duodenum as well as a larger diverticulum seen in the distal portion of the duodenum. IMPRESSION: 1. There is a moderate sized paraesophageal hiatal hernia. 2. There is a small diverticulum seen in the descending portion of the duodenum as well as a larger diverticulum seen in the distal portion of the duodenum. 2 minutes and 21 seconds of fluoroscopy time was utilized for this procedure. Reviewed by CHERYL Ramirez 01/18/2017 05:10 PEdited and Signed by Tej Linton MD 01/18/2017 05:21 P
== END ==
LOC: M RAD 09:48
PROVIDERS: ATTEND Surgery
DX: K44.9 Diaphragmatic hernia without obstruction or gangrene (principal)

== ENCOUNTER 2017-01-25 12:31 | Day surgery (SDC) | payer OTHER ==
[~2017-01-25] VITALS: Ht 165.1 cm; Wt 75.3 kg
[~2017-01-25 12:31] MED LIST changes: -E-Z-GAS II EFFERVESCENT PACKET (SODIUM BICARB./CITRIC ACID/SIMETHICONE) As Ordered ONE; -E-Z-HD 98% w/w 340GM SUSP BTL As Ordered ONE; -E-Z-PAQUE 96% w/w SUSP 176GM BTL As Ordered ONE; -FLAG500T PO; +GLYCOPYRROLATE INJ 0.2 MG/ML 2 ML VIAL As Ordered ONE; +HYDROmorphone HCL 2 MG/ML 1ML VIAL (J1170) As Ordered ONE; +LIDOCAINE 2% INJ 100 MG/5 ML SDV (FOR ANES.) As Ordered ONE; +MIDAZOLAM INJ 2 MG/2 ML VIAL (J2250) As Ordered ONE; +NEOSTIGMINE 1MG/ML 5 ML SYRINGE (J2710) As Ordered ONE; +ONDANSETRON 4MG/2ML VIAL (J2405) As Ordered ONE; -PANT40TA2 PO; -PERC5TAB12; +PROPOFOL 200 MG/20 ML VIAL As Ordered ONE; -RANI150T PO; +ROCURONIUM BROMIDE 50 MG/5 ML VIAL/SYRINGE As Ordered ONE; -SENE8.6T; +fentaNYL 100 MCG/2 ML INJECTION (J3010) As Ordered ONE
[2017-01-25] MEDS ORDERED: LR 1,000 ML IV ONE (12:45)
[2017-01-25] MEDS ORDERED: CLINDAMYCIN 600 MG in APPROPRIATE DILUENT 1 EA IV ONE (13:00)
[2017-01-25 13:14] LABS: CONTROL LINE UCG INT CTR LINE PRESENT
[2017-01-25] MEDS ORDERED: BUPIVACAINE/EPIN 0.25% 30 ML VIAL As Ordered ONE (14:51)
[2017-01-25] MEDS ORDERED: PERCOCET 5MG/325MG TAB As Ordered ONE (16:09)
[2017-01-25] MEDS ORDERED: NORCO, ANEXSIA 5/325MG TABLET (HYDROcodone/ACETAMINOPHEN) PO PRN (16:15)
[2017-01-25] MEDS ORDERED: fentaNYL 100 MCG/2 ML INJECTION (J3010) IV PRN (16:15)
[2017-01-25] MEDS ORDERED: LR 1,000 ML IV SCH (16:15)
[2017-01-25] MEDS ORDERED: ONDANSETRON 4MG/2ML VIAL (J2405) IV PRN (16:15)
[2017-01-25] MEDS ORDERED: PERCOCET 5MG/325MG TAB PO PRN (16:15)
[2017-01-25] MEDS: HYDROmorphone HCL 1 MG/ML SYRINGE (J1170) IV PRN ×2 (16:30→16:36)
[2017-01-25] MEDS ORDERED: KETOROLAC 30 MG/ML VIAL (J1885) IV ONE (18:30)
[2017-01-25 19:25] VITALS: BP 108/58
--- NOTE | 2017-01-28 22:20 | RO ---
DATE OF PROCEDURE: 01/25/2017 PREOPERATIVE DIAGNOSES: Chronic cholecystitis and incarcerated hernia. POSTPROCEDURE DIAGNOSES: Chronic cholecystitis and incarcerated hernia with paraesophageal hernia. PROCEDURE: Laparoscopic cholecystectomy with repair of incarcerated umbilical hernia. SURGEON: Dr. Concepcion CABLE TECHNICIAN: Dr. Hurd ANESTHESIA: General. ESTIMATED BLOOD LOSS: 5 mL. COMPLICATIONS: None. INDICATIONS FOR PROCEDURE: The patient 31-year-old female who presents with persistent sharp right upper quadrant and epigastric abdominal pains that occurs mainly after eating. Signs and symptoms were consistent with likely biliary dyskinesia secondary to an abnormal HIDA scan with slightly elevated ejection fraction. Recommendation was to proceed with laparoscopic cholecystectomy, possible open with the risks not limited, but including bleeding, infection, hernia formation, damage surrounding structures, possible need for further surgery and the possibility that this may not actually be her problem and it could possibly be secondary to her paraesophageal hernia. She understood and knows that both surgeries will be completed, but that I would recommend this will be completed first. She understands that they cannot be done at the same time as well. DESCRIPTION OF PROCEDURE: The patient brought to operating room #6. After sufficient sedation, the abdomen was sterilely prepped, draped. Next time-out was done to confirm proper patient and proper procedure. Following that, a stab incision was made in the left upper quadrant, Veress needle was inserted and the abdomen was insufflated to 50 mmHg. Next, a 5 mm infraumbilical incision was made. Incision was carried down through subcutaneous tissues. A 5 mm Optiview port was then used and placed through the hernia that was reduced. Once inside the abdomen, the 11 mm port was placed subxiphoid and two 5 mm ports were placed in the right upper quadrant. Veress needle site was examined and there were no signs of injury. The liver was elevated up in the air. The head of the bed was elevated and the paraesophageal hernia was examined. Picture was taken and the stomach was easily reduced out of the hernia without any adhesions. Next, the fundus of gallbladder was grasped and elevated up towards the right shoulder. Cystic duct and cystic artery were both easily identified. They are both doubly clipped and cut. The gallbladder was then removed from gallbladder fossa using electrocautery. The gallbladder was brought out through the 10 mm port site in a 10 mm EndoCatch bag. Once the gallbladder was out, the port was replaced. The umbilical hernia was examined from the inside and all of the contents were completely reduced. The fascia was closed with #0 Vicryl [id number] suture on a Spencer-Kentrell needle. The abdomen was then desufflated. Skin incisions closed with #4-0 Vicryl subcuticular sutures. The abdomen was cleaned and dried. Steri-Strips, 4x4 and tape were applied, thus ending procedure.
[2017-02-05] MEDS ORDERED: FLAG500T PO (09:34)
[2017-02-05] MEDS ORDERED: RANI150T PO (09:34)
[2017-02-05] MEDS ORDERED: PANT40TA2 PO (09:34)
== END 2017-01-25 19:25 | disposition home or self-care (01) ==
LOC: M SDC 12:31 → EEVIPCON 15:30 → M SDC 19:25
PROVIDERS: ATTEND Surgery
DX: K81.1 Chronic cholecystitis (principal); K42.0 Umbilical hernia with obstruction, without gangrene; K21.9 Gastro-esophageal reflux disease without esophagitis; F41.9 Anxiety disorder, unspecified; J45.909 Unspecified asthma, uncomplicated; Z91.040 Latex allergy status; Z79.899 Other long term (current) drug therapy; Z88.0 Allergy status to penicillin

== ENCOUNTER 2017-02-06 15:02 | Day surgery (SDC) | payer OTHER ==
[~2017-02-06] VITALS: Ht 165.1 cm; Wt 66.2 kg
[~2017-02-06 15:02] MED LIST changes: +BUPIVACAINE/EPIN 0.25% 30 ML VIAL As Ordered ONE; +FLAG500T PO; -GLYCOPYRROLATE INJ 0.2 MG/ML 2 ML VIAL As Ordered ONE; -HYDROmorphone HCL 2 MG/ML 1ML VIAL (J1170) As Ordered ONE; -LIDOCAINE 2% INJ 100 MG/5 ML SDV (FOR ANES.) As Ordered ONE; -MIDAZOLAM INJ 2 MG/2 ML VIAL (J2250) As Ordered ONE; -NEOSTIGMINE 1MG/ML 5 ML SYRINGE (J2710) As Ordered ONE; -ONDANSETRON 4MG/2ML VIAL (J2405) As Ordered ONE; +PANT40TA2 PO; -PROPOFOL 200 MG/20 ML VIAL As Ordered ONE; +RANI150T PO; -ROCURONIUM BROMIDE 50 MG/5 ML VIAL/SYRINGE As Ordered ONE; -fentaNYL 100 MCG/2 ML INJECTION (J3010) As Ordered ONE
[2017-02-06] MEDS ORDERED: CLINDAMYCIN 600 MG in APPROPRIATE DILUENT 1 EA IV ONE (15:15)
[2017-02-06] MEDS ORDERED: LR 1,000 ML IV SCH ×2 (15:15→19:30)
[2017-02-06 15:42] LABS: CONTROL LINE UCG INT CTR LINE PRESENT
[2017-02-06] MEDS ORDERED: fentaNYL 100 MCG/2 ML INJECTION (J3010) As Ordered ONE (15:45)
[2017-02-06] MEDS ORDERED: MIDAZOLAM INJ 2 MG/2 ML VIAL (J2250) As Ordered ONE (15:45)
[2017-02-06] MEDS ORDERED: BUPIVACAINE/EPIN 0.25% 30 ML VIAL As Ordered ONE (16:26)
[2017-02-06] MEDS ORDERED: dexameTHASONE 4 MG/ML 1ML VIAL (J1100) As Ordered ONE (16:56)
[2017-02-06] MEDS ORDERED: KETOROLAC 60 MG/2 ML VIAL (J1885) As Ordered ONE (16:56)
[2017-02-06] MEDS ORDERED: ONDANSETRON 4MG/2ML VIAL (J2405) As Ordered ONE (16:56)
[2017-02-06] MEDS ORDERED: HYDROmorphone HCL 2 MG/ML 1ML VIAL (J1170) As Ordered ONE (17:36)
[2017-02-06] MEDS ORDERED: GLYCOPYRROLATE INJ 0.2 MG/ML 2 ML VIAL As Ordered ONE (18:52)
[2017-02-06] MEDS ORDERED: NEOSTIGMINE 1MG/ML 5 ML SYRINGE (J2710) As Ordered ONE (18:52)
[2017-02-06] MEDS: PERCOCET 5MG/325MG TAB PO PRN ×2 (19:25→20:54)
[2017-02-06] MEDS: MEPERIDINE INJ 25 MG/ML VIAL (J2175) IV PRN ×2 (19:25→19:32)
[2017-02-06] MEDS ORDERED: METOCLOPRAMIDE INJ 10MG/2ML VIAL (J2765) IV PRN (19:30)
[2017-02-06] MEDS ORDERED: NORCO, ANEXSIA 5/325MG TABLET (HYDROcodone/ACETAMINOPHEN) PO PRN (19:30)
[2017-02-06] MEDS ORDERED: ONDANSETRON 4MG/2ML VIAL (J2405) IV PRN (19:30)
[2017-02-06] MEDS ORDERED: fentaNYL 100 MCG/2 ML INJECTION (J3010) IV PRN (19:30)
[2017-02-06] MEDS ORDERED: PERCOCET 5MG/325MG TAB As Ordered ONE (20:51)
[2017-02-06 22:03] VITALS: BP 118/67
--- NOTE | 2017-02-07 07:27 | RO ---
DATE OF PROCEDURE: 02/06/2017 PREOPERATIVE DIAGNOSIS: Paraesophageal hiatal hernia. POSTOPERATIVE DIAGNOSIS: Paraesophageal hiatal hernia. PROCEDURE: Laparoscopic hiatal hernia repair with mesh. SURGEON: Tej Concepcion DO BOARD MIXER TENDER: Sonido Green MD ANESTHESIA: General. ESTIMATED BLOOD LOSS: 10 COMPLICATIONS: None. INDICATIONS FOR PROCEDURE: The patient is a 31-year-old female who presents with epigastric abdominal pain for the past few months. She had upper endoscopy that showed a paraesophageal hernia as well as an upper GI, which confirmed it. She underwent a laparoscopic cholecystectomy because her symptoms sounded more like gallbladder disease rather than due to a hiatal hernia. However, after her gallbladder removal, she still was having the same exact problems. Therefore, recommendation was to proceed with laparoscopic repair of the paraesophageal hernia. Risks and benefits of procedure not limited but including bleeding, infection, hernia formation, hernia recurrence, damage to surrounding structures and possible need for further surgery were discussed in detail with the patient. Informed consent was obtained and procedure was planned. DESCRIPTION OF PROCEDURE: The patient was brought back to operating room #3. After sufficient sedation, the abdomen was sterilely prepped and draped. Next, a time-out was done to confirm proper patient and proper procedure. Following that a 5 mm incision was made left midclavicular line subcostally. Veress needle was then used to gain access to the abdomen. Once the abdomen was entered, it was insufflated to 50 mmHg. Next, an11 mm port was placed supraumbilically, followed by a 5 mm port subxiphoid, another 5 mm port in the left lateral upper quadrant and another 5 mm port in the right upper quadrant. The liver retractor was then placed through the right side to hold the liver in place and that was clamped to the bed using a non-mobile retractor. Next, the defect was identified. The stomach was carefully reduced out. Next, using a combination of blunt and sharp dissection with the LigaSure, the hernia sac was carefully dissected free circumferentially and completely reduced out of the defect. The hernia sac was then dissected free from the stomach and the esophagus and removed. Next , a 1/4 inch Kishor drain was placed around the gastroesophageal (GE) junction to help hold the stomach up in the air. Following that an #0 Ethibond suture was placed posteriorly to reapproximate the lester. Once that was done, the esophagus was laid down. Three more interrupted #0 Ethibond sutures were placed anteriorly to approximate the lester. Once this was completed, an HD Max 4 x 12 cm mesh was cut intermediate down the middle. This was placed inside and wrapped around the GE junction, sutured in place with an #0 Ethibond suture and then tacked flat overtop of the defect using SecureStrap tacks. Once this was completed, there is no signs of any bleeding or injury. We were able to pass a grasper easily in between the lester and the esophagus to make sure that it was not too tight. After that was completed, a #0 Vicryl suture with a Spencer-Lane needle was used to approximate the fascia at the 11 mm port site. Once that was completed, the rest of the ports were removed. Skin incisions were closed #4-0 Vicryl subcuticular sutures. The abdomen was cleaned and dried. Steri-Strips, 4 x 4 and tape were applied, thus ending procedure.
== END 2017-02-06 22:09 | disposition home or self-care (01) ==
LOC: M SDC 15:02
PROVIDERS: ATTEND Surgery
DX: K44.9 Diaphragmatic hernia without obstruction or gangrene (principal); K21.9 Gastro-esophageal reflux disease without esophagitis; F32.9 Major depressive disorder, single episode, unspecified; F41.9 Anxiety disorder, unspecified; J45.909 Unspecified asthma, uncomplicated; Z88.0 Allergy status to penicillin; Z79.899 Other long term (current) drug therapy; Z91.040 Latex allergy status

== ENCOUNTER 2017-02-13 19:31 | Emergency (ER) | payer OTHER ==
[~2017-02-13] VITALS: Ht 165.1 cm; Wt 65.5 kg
[~2017-02-13 19:31] MED LIST changes: -BUPIVACAINE/EPIN 0.25% 30 ML VIAL As Ordered ONE
[2017-02-13] MEDS ORDERED: PERC5TAB12 (19:43)
[2017-02-13] MEDS ORDERED: SENE8.6T (19:43)
[2017-02-13 20:49] LABS: MEAN CORPUSCULAR HEMOGLOBIN 28.8 pg (27.0-33.0); MEAN CORPUSCULAR HGB CONC 34.8 g/dl (32.0-36.5); MEAN CORPUSCULAR VOLUME 82.9 fl (80.0-96.0); RED CELL DISTRIBUTION WIDTH 12.5 % (11.5-14.5); WHITE BLOOD COUNT 8.3 K/mm3 (4.0-10.0)
[2017-02-13 21:02] LABS: METHADONE URINE NEGATIVE (NEGATIVE)
[2017-02-13 21:11] LABS: ALBUMIN 3.7 GM/DL (3.2-5.2); ALBUMIN/GLOBULIN RATIO 1.09 (1.00-1.93); ALKALINE PHOSPHATASE 70 U/L (45-117); ALT/SGPT 16 U/L (12-78); ANION GAP 11 MEQ/L (8-16); AST/SGOT 6 U/L (15-37); BILIRUBIN,DIRECT < 0.1 MG/DL (0.0-0.2); BILIRUBIN,TOTAL 0.3 MG/DL (0.2-1.0); BLOOD UREA NITROGEN 12 MG/DL (7-18); CALCIUM LEVEL 8.6 MG/DL (8.5-10.1); CARBON DIOXIDE LEVEL 24 MEQ/L (21-32); CHLORIDE LEVEL 106 MEQ/L (98-107); GLOMERULAR FILTRATION RATE > 60.0 (>60); GLUCOSE, FASTING 91 MG/DL (70-105); SODIUM LEVEL 141 MEQ/L (136-145); TOTAL PROTEIN 7.1 GM/DL (6.4-8.2)
[2017-02-13 21:48] LABS: CONTROL LINE HCG INT CTR LINE PRESENT
[2017-02-13 22:33] VITALS: BP 112/64
== END 2017-02-13 22:56 | disposition home or self-care (01) ==
LOC: M ED 19:31
DX: F43.20 Adjustment disorder, unspecified (principal); F33.9 Major depressive disorder, recurrent, unspecified; Z79.899 Other long term (current) drug therapy; Z88.0 Allergy status to penicillin; Z91.040 Latex allergy status; Z88.4 Allergy status to anesthetic agent

== ENCOUNTER → 2017-02-25 | Outpatient (CLI) | payer OTHER ==
[~2017-02-25] MED LIST changes: +E-Z-GAS II EFFERVESCENT PACKET (SODIUM BICARB./CITRIC ACID/SIMETHICONE) As Ordered ONE; +E-Z-HD 98% w/w 340GM SUSP BTL As Ordered ONE; +E-Z-PAQUE 96% w/w SUSP 176GM BTL As Ordered ONE; +PERC5TAB12; +SENE8.6T
--- NOTE | 2017-02-25 18:04 | REP ---
UPPER GI, SINGLE CONTRAST: The procedure was performed under the direct supervision of Dr. Linton. The images were reviewed with Dr. Linton. The washer off film shows the intestinal gas pattern to be nonspecific. There are surgical clips noted in the right upper quadrant. The exam was compared to the previous study dated 01/17/2017. Liquid barium was administered in the erect and prone oblique positions. The oral and pharyngeal stages of deglutition are unremarkable. Esophageal transport is prompt and efficient and there is no esophagitis, stricture, or mucosal ring. The paraesophageal hiatal hernia seen on the previous study is no longer visualized today. This is consistent with the patient's history of hiatal hernia repair. There is free flow of contrast into the stomach. There is no evidence of stricture or obstruction. There is no evidence of extravasation. The stomach is grossly normal. The rugal folds are smooth and regular. There is no evidence of gastritis, neoplasm or ulcer disease. The duodenum is grossly normal. The mucosal folds are smooth and regular. There is no evidence of duodenitis, pancreatitis, peptic ulcer disease or neoplasm. There is a small diverticulum in the descending portion of the duodenum as well as a larger diverticulum seen in the distal portion of the duodenum which are unchanged compared to the previous exam. IMPRESSION: The patient is status post hiatal hernia repair. There is no evidence of stricture or extravasation. Otherwise single contrast upper GI within normal limits. The two duodenal diverticula are unchanged compared to the previous examination. 2 minutes and 9 seconds of fluoroscopy time was utilized for this procedure. Reviewed by CHERYL Ramirez 02/26/2017 05:26 PEdited and Signed by Tej Linton MD 02/27/2017 09:45 A
== END ==
LOC: M RAD 09:19
PROVIDERS: ATTEND Surgery
DX: R10.9 Unspecified abdominal pain (principal)

== ENCOUNTER → 2017-03-12 | Outpatient (REF) ==
[~2017-03-12] MED LIST changes: -E-Z-GAS II EFFERVESCENT PACKET (SODIUM BICARB./CITRIC ACID/SIMETHICONE) As Ordered ONE; -E-Z-HD 98% w/w 340GM SUSP BTL As Ordered ONE; -E-Z-PAQUE 96% w/w SUSP 176GM BTL As Ordered ONE
== END ==
LOC: M LAB 14:08
PROVIDERS: ATTEND Nurse Practitioner Family
DX: Z00.00 Encounter for general adult medical examination without abnormal findings (principal)

== ENCOUNTER → 2017-06-16 | Outpatient (REF) | payer OTHER, MEDICAID ==
[2017-06-16 22:08] LABS: AMORPHOUS SEDIMENT SMALL (NEGATIVE); APPEARANCE, URINE CLOUDY (CLEAR); BACTERIA, URINE AUTO 2+ (NEGATIVE); BILIRUBIN, URINE AUTO NEGATIVE (NEGATIVE); BLOOD, URINE BLOOD 3+ (NEGATIVE); COLOR, URINE YELLOW (YELLOW); GLUCOSE, URINE (UA) AUTO NEGATIVE (NEGATIVE); KETONE, URINE AUTO NEGATIVE (NEGATIVE); LEUKOCYTE ESTERASE, URINE AUTO 3+ (NEGATIVE); MUCUS, URINE SMALL (NEGATIVE); NITRITE, URINE AUTO POSITIVE (NEGATIVE); PROTEIN, URINE AUTO 1+ mg/dL (NEGATIVE); RBC, URINE AUTO TNTC /HPF (0-3); SPECIFIC GRAVITY URINE AUTO 1.005 (1.002-1.035); SQUAMOUS EPITHELIAL CELL UR AU 1 /HPF (0-6); UROBILINOGEN, URINE AUTO 0.2 mg/dL (0.0-2.0); WBC, URINE AUTO 122 /HPF (0-3)
== END ==
LOC: M LAB REF 09:07
DX: N39.0 Urinary tract infection, site not specified (principal)

== ENCOUNTER → 2017-06-21 | Outpatient (REF) | payer OTHER, MEDICAID ==
[2017-06-21 22:48] LABS: APPEARANCE, URINE CLEAR (CLEAR); BACTERIA, URINE AUTO 1+ (NEGATIVE); BILIRUBIN, URINE AUTO NEGATIVE (NEGATIVE); BLOOD, URINE BLOOD NEGATIVE (NEGATIVE); COLOR, URINE AMBER (YELLOW); GLUCOSE, URINE (UA) AUTO NEGATIVE (NEGATIVE); KETONE, URINE AUTO NEGATIVE (NEGATIVE); LEUKOCYTE ESTERASE, URINE AUTO NEGATIVE (NEGATIVE); MUCUS, URINE SMALL (NEGATIVE); NITRITE, URINE AUTO POSITIVE (NEGATIVE); PROTEIN, URINE AUTO NEGATIVE (NEGATIVE); RBC, URINE AUTO 1 /HPF (0-3); SPECIFIC GRAVITY URINE AUTO 1.006 (1.002-1.035); SQUAMOUS EPITHELIAL CELL UR AU 3 /HPF (0-6); WBC, URINE AUTO 0 /HPF (0-3)
== END ==
LOC: M LAB REF 08:41
DX: N39.0 Urinary tract infection, site not specified (principal)

== ENCOUNTER 2017-06-27 11:36 | Emergency (ER) | payer OTHER, MEDICAID ==
[2017-06-27] MEDS: NORCO, ANEXSIA 5/325MG TABLET (HYDROcodone/ACETAMINOPHEN) PO (12:12)
== END 2017-06-27 13:01 | disposition home or self-care (01) ==
LOC: M ED 11:36
DX: S63.501A Unspecified sprain of right wrist, initial encounter (principal); X50.0XXA Overexertion from strenuous movement or load, initial encounter; Y92.89 Other specified places as the place of occurrence of the external cause; J45.909 Unspecified asthma, uncomplicated; F32.9 Major depressive disorder, single episode, unspecified; Z88.0 Allergy status to penicillin; Z88.4 Allergy status to anesthetic agent; Z79.899 Other long term (current) drug therapy
CPT/HCPCS: 73110

== ENCOUNTER 2017-07-06 06:48 | Emergency (ER) | payer OTHER, MEDICAID ==
[2017-07-06] MEDS: predniSONE 20 MG TAB PO (07:33)
[2017-07-06] MEDS: NORCO, ANEXSIA 5/325MG TABLET (HYDROcodone/ACETAMINOPHEN) PO (07:33)
== END 2017-07-06 07:40 | disposition home or self-care (01) ==
LOC: M ED 06:48
DX: S63.501A Unspecified sprain of right wrist, initial encounter (principal); X50.0XXA Overexertion from strenuous movement or load, initial encounter; Y92.89 Other specified places as the place of occurrence of the external cause; J45.909 Unspecified asthma, uncomplicated; F41.9 Anxiety disorder, unspecified; F32.9 Major depressive disorder, single episode, unspecified
CPT/HCPCS: 99282

== ENCOUNTER 2017-07-07 18:14 | Emergency (ER) | payer OTHER ==
[2017-07-07] MEDS: KETOROLAC 60 MG/2 ML VIAL (J1885) IM (19:40)
== END 2017-07-07 20:07 | disposition home or self-care (01) ==
LOC: M ED 18:14
DX: M25.531 Pain in right wrist (principal); F41.9 Anxiety disorder, unspecified; F32.9 Major depressive disorder, single episode, unspecified; J45.909 Unspecified asthma, uncomplicated; Z91.040 Latex allergy status; Z88.0 Allergy status to penicillin; Z88.4 Allergy status to anesthetic agent; Z79.899 Other long term (current) drug therapy
CPT/HCPCS: J1885

== ENCOUNTER 2017-09-04 15:56 | Emergency (ER) | payer OTHER, MEDICAID ==
[2017-09-04] MEDS: CYCLOBENZAPRINE 10 MG TAB PO (18:19)
[2017-09-04] MEDS: KETOROLAC 60 MG/2 ML VIAL (J1885) IM (18:20)
== END 2017-09-04 19:55 | disposition home or self-care (01) ==
LOC: M ED 15:56
DX: M54.2 Cervicalgia (principal); R51 Headache; J45.909 Unspecified asthma, uncomplicated
CPT/HCPCS: J1885

== ENCOUNTER 2017-09-23 10:06 | Emergency (ER) | payer OTHER, MEDICAID ==
[2017-09-23] MEDS: ONDANSETRON 4MG/2ML VIAL (J2405) IV (12:24)
[2017-09-23] MEDS: NS 1,000 ML IV (12:25)
[2017-09-23 12:27] LABS: BASO % 0.1 % (0.0-1.0); HEMATOCRIT 43.1 % (36.0-47.0); HEMOGLOBIN 14.6 g/dl (12.0-15.5); IMMATURE GRANULOCYTE % 0.4 % (0-3.0); LYMPH # 0.5 10^3/uL (1.5-4.5); LYMPH % 4.3 % (24.0-44.0); MEAN CORPUSCULAR HEMOGLOBIN 28.2 pg (27.0-33.0); MEAN CORPUSCULAR HGB CONC 33.9 g/dl (32.0-36.5); MEAN CORPUSCULAR VOLUME 83.4 fl (80.0-96.0); MONO # 0.4 10^3/uL (0.0-0.8); MONO % 3.3 % (0.0-5.0); NEUTROPHILS # 10.1 10^3/uL (1.8-7.7); NEUTROPHILS % 91.9 % (36.0-66.0); PLATELET COUNT, AUTOMATED 218 10^3/uL (150-450); RED BLOOD COUNT 5.17 10^6/uL (4.00-5.40); RED CELL DISTRIBUTION WIDTH 12.7 % (11.5-14.5)
[2017-09-23 12:37] LABS: INR 1.06; PROTHROMBIN TIME 13.9 SECONDS (12.4-14.5)
[2017-09-23 13:00] LABS: ALBUMIN/GLOBULIN RATIO 1.11 (1.00-1.93); ALKALINE PHOSPHATASE 74 U/L (45-117); ALT/SGPT 17 U/L (12-78); AMYLASE 35 U/L (25-115); ANION GAP 8 MEQ/L (8-16); AST/SGOT 8 U/L (7-37); BILIRUBIN,DIRECT 0.1 MG/DL (0.0-0.2); BILIRUBIN,TOTAL 0.6 MG/DL (0.2-1.0); BLOOD UREA NITROGEN 20 MG/DL (7-18); CALCIUM LEVEL 8.9 MG/DL (8.5-10.1); CARBON DIOXIDE LEVEL 24 MEQ/L (21-32); CHLORIDE LEVEL 109 MEQ/L (98-107); CREATININE FOR GFR 0.83 MG/DL (0.55-1.30); GLOMERULAR FILTRATION RATE > 60.0 (>60); GLUCOSE, FASTING 115 MG/DL (70-100); LIPASE 56 U/L (73-393); POTASSIUM SERUM 3.8 MEQ/L (3.5-5.1); SODIUM LEVEL 141 MEQ/L (136-145); TOTAL PROTEIN 7.6 GM/DL (6.4-8.2)
[2017-09-23] MEDS: MORPHINE 2 MG/ML 1ML SYRINGE (J2270) IV (13:15)
[2017-09-23 14:00] LABS: BILIRUBIN, URINE MANUAL 1+ (NEGATIVE); BLOOD URINE MANUAL RFX TRACE (NEGATIVE); GLUCOSE, URINE (UA) MANUAL NEGATIVE (NEGATIVE); KETONE, URINE MANUAL NEGATIVE (NEGATIVE); MICROSCOPIC INDICATED? RFX YES (NO); NITRITE, URINE MANUAL RFX NEGATIVE (NEGATIVE); PROTEIN, URINE MANUAL REFLEX NEGATIVE (NEGATIVE); SP GRAVITY,URINE MANUAL REFLEX 1.032 (1.002-1.035); UROBILINOGEN, URINE MANUAL NORMAL (NORMAL)
[2017-09-23 14:01] LABS: CONTROL LINE UCG INT CTR LINE PRESENT; URINE PREG TEST NEGATIVE (NEGATIVE)
[2017-09-23 14:09] LABS: AMORPHOUS SEDIMENT, URINE LARGE AMOUNT (NEGATIVE); BACTERIA, URINE NONE SEEN; HYALINE CAST, URINE NONE SEEN /lpf (0-1); MICROSCOPIC EXAM PERFORMED; RBC, URINE NONE SEEN /hpf (0-3); SQUAMOUS EPITHELIAL CELL URINE SMALL AMOUNT /hpf (SMALL AMT); WBC, URINE MAN RFX NONE SEEN /hpf (0-3)
[2017-09-23 14:21] LABS: TROPONIN I < 0.02 NG/ML (< 0.10)
[2017-09-23 14:22] LABS: CK-MB VALUE MASS 1.2 NG/ML (<3.6); CPK CREATINE PHOSPHOKINASE 60 U/L (26-192)
== END 2017-09-23 14:56 | disposition home or self-care (01) ==
LOC: M ED 10:06
DX: R11.2 Nausea with vomiting, unspecified (principal); R19.7 Diarrhea, unspecified; F41.9 Anxiety disorder, unspecified; F33.9 Major depressive disorder, recurrent, unspecified; Z79.899 Other long term (current) drug therapy; Z88.0 Allergy status to penicillin; Z88.6 Allergy status to analgesic agent; Z91.040 Latex allergy status; F17.210 Nicotine dependence, cigarettes, uncomplicated
CPT/HCPCS: J2405

== ENCOUNTER → 2017-10-01 | Outpatient (REF) | payer OTHER, MEDICAID ==
[2017-10-01 14:34] LABS: APPEARANCE, URINE CLEAR (CLEAR); BACTERIA, URINE AUTO NEGATIVE (NEGATIVE); BILIRUBIN, URINE AUTO NEGATIVE (NEGATIVE); BLOOD, URINE BLOOD 3+ (NEGATIVE); COLOR, URINE COLORLESS (YELLOW); GLUCOSE, URINE (UA) AUTO NEGATIVE (NEGATIVE); KETONE, URINE AUTO NEGATIVE (NEGATIVE); LEUKOCYTE ESTERASE, URINE AUTO 2+ (NEGATIVE); NITRITE, URINE AUTO NEGATIVE (NEGATIVE); PROTEIN, URINE AUTO NEGATIVE (NEGATIVE); RBC, URINE AUTO 0 /HPF (0-3); SPECIFIC GRAVITY URINE AUTO 1.001 (1.002-1.035); SQUAMOUS EPITHELIAL CELL UR AU 0 /HPF (0-6); UROBILINOGEN, URINE AUTO 0.2 mg/dL (0.0-2.0); WBC, URINE AUTO 0 /HPF (0-3)
== END ==
LOC: M LAB REF 13:09
DX: N39.0 Urinary tract infection, site not specified (principal)
CPT/HCPCS: 81001

== ENCOUNTER 2017-10-10 20:05 | Emergency (ER) | payer OTHER, MEDICAID ==
[2017-10-10] MEDS: KETOROLAC 60 MG/2 ML VIAL (J1885) IM (21:41)
[2017-10-10] MEDS: NORCO 5/325MG TABLET (BULK FOR ED) PO (22:19)
== END 2017-10-10 22:23 | disposition home or self-care (01) ==
LOC: M ED 20:05
DX: M54.2 Cervicalgia (principal); R51 Headache; F41.9 Anxiety disorder, unspecified; F32.9 Major depressive disorder, single episode, unspecified; J45.909 Unspecified asthma, uncomplicated; Z88.0 Allergy status to penicillin; Z88.4 Allergy status to anesthetic agent; Z91.040 Latex allergy status; Z79.899 Other long term (current) drug therapy
CPT/HCPCS: J1885

== ENCOUNTER 2017-12-08 15:07 | Emergency (ER) | payer OTHER, MEDICAID ==
[2017-12-08 16:13] LABS: BASO % 0.4 % (0.0-1.0); EOS % 0.3 % (0.0-3.0); HEMATOCRIT 42.4 % (36.0-47.0); HEMOGLOBIN 14.3 g/dl (12.0-15.5); IMMATURE GRANULOCYTE % 0.2 % (0-3.0); LYMPH # 2.3 10^3/uL (1.5-4.5); LYMPH % 25.5 % (24.0-44.0); MEAN CORPUSCULAR HEMOGLOBIN 28.4 pg (27.0-33.0); MEAN CORPUSCULAR HGB CONC 33.7 g/dl (32.0-36.5); MEAN CORPUSCULAR VOLUME 84.3 fl (80.0-96.0); MONO # 0.5 10^3/uL (0.0-0.8); MONO % 6.1 % (0.0-5.0); NEUTROPHILS % 67.5 % (36.0-66.0); PLATELET COUNT, AUTOMATED 229 10^3/uL (150-450); RED BLOOD COUNT 5.03 10^6/uL (4.00-5.40); RED CELL DISTRIBUTION WIDTH 13.4 % (11.5-14.5); WHITE BLOOD COUNT 8.9 10^3/uL (4.0-10.0)
[2017-12-08 16:21] LABS: INR 1.08; PARTIAL THROMBOPLASTIN TIME 28.1 SECONDS (25.4-37.6); PROTHROMBIN TIME 14.1 SECONDS (12.1-14.4)
[2017-12-08 16:27] LABS: BEDSIDE GLUCOSE 79 MG/DL (70-105)
[2017-12-08 16:32] LABS: ALBUMIN 3.9 GM/DL (3.2-5.2); ALBUMIN/GLOBULIN RATIO 1.03 (1.00-1.93); ALKALINE PHOSPHATASE 72 U/L (45-117); ALT/SGPT 17 U/L (12-78); ANION GAP 8 MEQ/L (8-16); AST/SGOT 10 U/L (7-37); BILIRUBIN,DIRECT 0.1 MG/DL (0.0-0.2); BILIRUBIN,TOTAL 0.7 MG/DL (0.2-1.0); BLOOD UREA NITROGEN 9 MG/DL (7-18); CALCIUM LEVEL 8.4 MG/DL (8.5-10.1); CARBON DIOXIDE LEVEL 26 MEQ/L (21-32); CHLORIDE LEVEL 107 MEQ/L (98-107); CPK CREATINE PHOSPHOKINASE 62 U/L (26-192); CREATININE FOR GFR 0.67 MG/DL (0.55-1.30); GLOMERULAR FILTRATION RATE > 60.0 (>60); GLUCOSE, FASTING 82 MG/DL (70-100); MAGNESIUM LEVEL 2.1 MG/DL (1.8-2.4); PHOSPHORUS LEVEL 2.8 MG/DL (2.5-4.9); POTASSIUM SERUM 3.8 MEQ/L (3.5-5.1); SODIUM LEVEL 141 MEQ/L (136-145); TOTAL PROTEIN 7.7 GM/DL (6.4-8.2); TROPONIN I < 0.02 NG/ML (< 0.10)
[2017-12-08 16:37] LABS: CK-MB VALUE MASS 1.1 NG/ML (<3.6); FREE T4 0.94 NG/DL (0.76-1.46); MB/CK RELATIVE INDEX 1.77 (< OR =4)
[2017-12-08] MEDS: CYCLOBENZAPRINE 10 MG TAB PO (18:01)
[2017-12-08] MEDS: METHOCARBAMOL 1,000 MG/10 ML VIAL (J2800) IV (19:53)
== END 2017-12-08 21:09 | disposition home or self-care (01) ==
LOC: M ED 15:07
DX: R68.84 Jaw pain (principal); R20.2 Paresthesia of skin; J45.909 Unspecified asthma, uncomplicated; F33.9 Major depressive disorder, recurrent, unspecified; Z79.899 Other long term (current) drug therapy; Z98.890 Other specified postprocedural states; Z88.0 Allergy status to penicillin; Z88.8 Allergy status to other drugs, medicaments and biological substances; Z91.040 Latex allergy status
CPT/HCPCS: J2800

== ENCOUNTER 2017-12-09 08:44 | Emergency (ER) | payer OTHER ==
[2017-12-12 14:19] LABS: Lyme Disease IgG Ab 18 kDa Ban Absent (.); Lyme Disease IgG Ab 23 kDa Ban Absent (.); Lyme Disease IgG Ab 28 kDa Ban Absent (.); Lyme Disease IgG Ab 30 kDa Ban Absent (.); Lyme Disease IgG Ab 39 kDa Ban Absent (.); Lyme Disease IgG Ab 41 kDa Ban Absent (.); Lyme Disease IgG Ab 45 kDa Ban Absent (.); Lyme Disease IgG Ab 58 kDa Ban Absent (.); Lyme Disease IgG Ab 66 kDa Ban Absent (.); Lyme Disease IgG Ab 93 kDa Ban Absent (.); Lyme Disease IgG West Blot Int Negative (.); Lyme Disease IgG/IgM Antibodie <0.91 ISR (0.00-0.90); Lyme Disease IgM Ab 23 kDa Ban Absent (.); Lyme Disease IgM Ab 39 kDa Ban Absent (.); Lyme Disease IgM Ab 41 kDa Ban Absent (.); Lyme Disease IgM Ab Quantitati 1.64 index (0.00-0.79); Lyme Disease IgM West Blot Int Negative (.)
== END 2017-12-09 10:00 | disposition home or self-care (01) ==
LOC: M ED 08:44
DX: R29.810 Facial weakness (principal); R20.2 Paresthesia of skin; F41.9 Anxiety disorder, unspecified; F33.9 Major depressive disorder, recurrent, unspecified; Z79.899 Other long term (current) drug therapy; Z88.0 Allergy status to penicillin; Z88.6 Allergy status to analgesic agent; Z91.040 Latex allergy status
CPT/HCPCS: 86617

== ENCOUNTER 2017-12-14 11:55 | Emergency (ER) | payer OTHER, MEDICAID ==
[2017-12-14] MEDS: CLINDAMYCIN 150 MG CAP PO (13:45)
== END 2017-12-14 13:53 | disposition home or self-care (01) ==
LOC: M ED 11:55
DX: H66.91 Otitis media, unspecified, right ear (principal); J01.90 Acute sinusitis, unspecified; G51.0 Bell's palsy; F33.9 Major depressive disorder, recurrent, unspecified; F41.9 Anxiety disorder, unspecified; Z88.0 Allergy status to penicillin; Z91.040 Latex allergy status; Z88.8 Allergy status to other drugs, medicaments and biological substances; Z79.899 Other long term (current) drug therapy; Z98.890 Other specified postprocedural states; Z87.09 Personal history of other diseases of the respiratory system
CPT/HCPCS: 99283

== ENCOUNTER 2018-02-18 06:00 | Day surgery (SDC) | payer OTHER ==
[2018-02-18 06:58] LABS: CONTROL LINE UCG INT CTR LINE PRESENT; URINE PREG TEST NEGATIVE (NEGATIVE)
[2018-02-18] MEDS: LR 1,000 ML IV (07:10)
[2018-02-18] MEDS: POVIDONE-IODINE 5% OPHTH PREP SOL 30ML As Ordered (07:50)
[2018-02-18] MEDS ORDERED: fentaNYL 100 MCG/2 ML INJECTION (J3010) As Ordered (07:55)
[2018-02-18] MEDS ORDERED: PROPOFOL 200 MG/20 ML VIAL As Ordered (07:55)
[2018-02-18] MEDS ORDERED: dexameTHASONE 4 MG/ML 1ML VIAL (J1100) As Ordered (07:55)
[2018-02-18] MEDS ORDERED: MIDAZOLAM INJ 2 MG/2 ML VIAL (J2250) As Ordered (07:55)
[2018-02-18] MEDS ORDERED: ONDANSETRON 4MG/2ML VIAL (J2405) As Ordered (07:55)
[2018-02-18] MEDS ORDERED: ePHEDrine SULFATE 25 MG/5 ML(5MG/ML) SYRINGE As Ordered (08:07)
[2018-02-18] MEDS: LIDOCAINE 2% W/EPIN INJ 20ML **PRES FREE As Ordered (08:30)
[2018-02-18] MEDS: ERYTHROMYCIN OPHTH OINT As Ordered (08:39)
[2018-02-18] MEDS ORDERED: PERCOCET 5MG/325MG TAB As Ordered (09:01)
[2018-02-18] MEDS ORDERED: HYDROMORPHONE HCL 0.5 MG/ 0.5 ML SYRINGE (J1170 PER 1) As Ordered (09:01)
[2018-02-18] MEDS: PERCOCET 5MG/325MG TAB PO ×2 (09:05→09:38)
[2018-02-18] MEDS: HYDROMORPHONE HCL 0.5 MG/ 0.5 ML SYRINGE (J1170 PER 1) IV ×3 (09:07→09:37)
[2018-02-18] MEDS ORDERED: LR 1,000 ML IV (09:15)
[2018-02-18] MEDS ORDERED: fentaNYL 100 MCG/2 ML INJECTION (J3010) IV (09:15)
[2018-02-18] MEDS: ONDANSETRON 4MG/2ML VIAL (J2405) IV (09:52)
== END 2018-02-18 10:45 | disposition home or self-care (01) ==
LOC: M SDC 06:00
DX: G51.0 Bell's palsy (principal); H16.101 Unspecified superficial keratitis, right eye; F41.9 Anxiety disorder, unspecified; F32.9 Major depressive disorder, single episode, unspecified; J45.909 Unspecified asthma, uncomplicated; J30.9 Allergic rhinitis, unspecified; G43.909 Migraine, unspecified, not intractable, without status migrainosus; M79.604 Pain in right leg; M79.605 Pain in left leg; M51.26 Other intervertebral disc displacement, lumbar region; M50.30 Other cervical disc degeneration, unspecified cervical region; J32.9 Chronic sinusitis, unspecified; G89.29 Other chronic pain; H53.8 Other visual disturbances; H02.431 Paralytic ptosis of right eyelid; Z88.1 Allergy status to other antibiotic agents; Z88.4 Allergy status to anesthetic agent; Z91.040 Latex allergy status; Z87.440 Personal history of urinary (tract) infections
CPT/HCPCS: 67880